=== PATIENT | female | born 2000 | race Asian ===

== ENCOUNTER 2022-04-23 05:28 | Emergency (ER) | payer BC, OTHER ==
[2022-04-23] MEDS ORDERED: Ketorolac Tromethamine 30 MG/ML VIAL ONE (06:07)
[2022-04-23] MEDS ORDERED: Dexamethasone 10 MG/ML VIAL ONE (06:07)
[2022-04-23 06:49] LABS: BHCG - Serum Negative (NEGATIVE); Pregs Control Background? CLEAR/WHITE (CLR/WHITE); Pregs Control Bar Appear? YES (CONTROL BAR)
[2022-04-23 06:55] LABS: Anion Gap 14 mmol/L (10-20); BUN (Urea Nitrogen) 9 mg/dL (7.0-18.7); Calc. Creatinine Clearance 0 mL/min (70-130); Calcium 9.1 mg/dL (7.8-10.44); Carbon Dioxide 19 mmol/L (22-29); Chloride 109 mmol/L (98-107); Estimated GFR 112; Glucose 89 mg/dL (70-105); Magnesium 1.9 mg/dL (1.6-2.6); Potassium 3.7 mmol/L (3.5-5.1); Sodium 138 mmol/L (136-145)
[2022-04-23 07:01] LABS: #Eosinphils 0.1 10x3/uL (0.0-0.5); #Monocytes 0.8 10x3/uL (0.0-1.1); #Neutrophils 3.7 10x3/uL (1.5-8.4); %Basophils 0.2 % (0.0-2.0); %Eosinophils 2.1 % (0.0-6.0); %Lymphocytes 12.8 % (18.0-47.0); %Monocytes 14.5 % (0.0-10.0); %Neutrophils 70.2 % (40.0-75.0); Hemoglobin 13.8 g/dL (12.0-15.5); Mean Corpuscular HGB CONC 35.2 g/dL (32.0-36.0); Mean Corpuscular Hemoglobin 31.5 pg (27.0-33.0); Mean Corpuscular Volume 89.5 fl (81.6-98.3); Mean Platelet Volume 9.7 fl (7.4-10.4); Platelet Count 317 10x3/uL (150-450); RBC Distribution Width 12.9 % (11.5-14.5); Red Blood Cell (RBC) Count 4.38 10x6/uL (3.90-5.03); White Blood Cell (WBC) Count 5.3 10x3/uL (3.5-10.5)
[2022-04-23 07:21] LABS: SARS-CoV-2 NAA Rapid Test DETECTED (NotDetected)
== END 2022-04-23 07:48 | disposition home or self-care (01) ==
LOC: CSHERS 05:28
DX: U07.1 COVID-19 (principal)
CPT/HCPCS: 80048; 83735; 84703; 85025; 87081; 87430; 96361; 96374; 96375; J1100; J1885

== ENCOUNTER 2022-10-17 18:11 | Inpatient (IN) | payer BC ==
[2022-10-17 19:01] LABS: #Eosinphils 0.1 10x3/uL (0.0-0.5); #Monocytes 0.5 10x3/uL (0.0-1.1); #Neutrophils 3.7 10x3/uL (1.5-8.4); %Basophils 0.3 % (0.0-2.0); %Eosinophils 1.7 % (0.0-6.0); %Lymphocytes 40.3 % (18.0-47.0); %Monocytes 6.4 % (0.0-10.0); Hematocrit 41.4 % (34.9-44.5); Hemoglobin 14.4 g/dL (12.0-15.5); Mean Corpuscular HGB CONC 34.8 g/dL (32.0-36.0); Mean Corpuscular Hemoglobin 31.1 pg (27.0-33.0); Mean Corpuscular Volume 89.4 fl (81.6-98.3); Mean Platelet Volume 9.3 fl (7.4-10.4); Platelet Count 418 10x3/uL (150-450); RBC Distribution Width 12.3 % (11.5-14.5); Red Blood Cell (RBC) Count 4.63 10x6/uL (3.90-5.03); White Blood Cell (WBC) Count 7.2 10x3/uL (3.5-10.5)
[2022-10-17 19:05] LABS: Pregs Control Background? CLEAR/WHITE (CLR/WHITE); Pregs Control Bar Appear? YES (CONTROL BAR)
[2022-10-17 19:10] LABS: BHCG - Serum Negative (NEGATIVE)
[2022-10-17 19:16] LABS: ALT (SGPT) 21 U/L (8-55); AST (SGOT) 18 U/L (5-34); Albumin 4.4 g/dL (3.5-5.0); Alkaline Phosphatase 56 U/L (40-110); Anion Gap 13 mmol/L (10-20); BUN (Urea Nitrogen) 7 mg/dL (7.0-18.7); Bilirubin, Total 1.4 mg/dL (0.2-1.2); CK (CPK) 65 U/L (29-168); Calc. Creatinine Clearance 0 mL/min (70-130); Calcium 9.4 mg/dL (7.8-10.44); Carbon Dioxide 27 mmol/L (22-29); Chloride 103 mmol/L (98-107); Estimated GFR 100; Glucose 119 mg/dL (70-105); Potassium 3.5 mmol/L (3.5-5.1); Protein, Total 8.4 g/dL (6.0-8.3); Sodium 139 mmol/L (136-145)
[2022-10-17] MEDS ORDERED: Ketorolac Tromethamine 30 MG/ML VIAL ONE (19:38)
[2022-10-17] MEDS ORDERED: Magnesium 2 GM/50 ML BAG (IN WATER) ONE (19:39)
[2022-10-17 20:20] LABS: SARS-CoV-2 NAA Rapid Test Not Detected (NotDetected)
[2022-10-17] MEDS ORDERED: Senokot S 8.6-50 MG TAB PO PRN (21:28)
[2022-10-17] MEDS ORDERED: Ondansetron PF 4 MG/2 ML Vial IVP PRN (21:28)
[2022-10-17] MEDS ORDERED: Calcium Carbonate 500 MG ChewTAB PO PRN (21:28)
[2022-10-17] MEDS ORDERED: methylPREDNISolone Sod Succ/PF 125 MG/2 ML VIAL IVP SCH (21:45)
[2022-10-17] MEDS ORDERED: Potassium Chloride 20 MEQ TAB PO SCH (23:30)
[2022-10-17] MEDS ORDERED: Potassium Chloride 20 MEQ TAB ONE (23:42)
[2022-10-17] MEDS ORDERED: methylPREDNISolone Sod Succ 1,000 MG in Sodium Chloride 0.9% 250 ML 250 ML IVPB SCH (23:59)
[2022-10-18] MEDS: Lactated Ringer's 1,000 ML IV SCH ×2 (00:01→20:32)
[2022-10-18 01:20] VITALS: BMI 29.5
[2022-10-18 04:02] LABS: ALT (SGPT) 18 U/L (8-55); AST (SGOT) 16 U/L (5-34); Albumin 3.8 g/dL (3.5-5.0); Alkaline Phosphatase 52 U/L (40-110); Anion Gap 14 mmol/L (10-20); BUN (Urea Nitrogen) 9 mg/dL (7.0-18.7); Calc. Creatinine Clearance 132 mL/min (70-130); Calcium 8.9 mg/dL (7.8-10.44); Carbon Dioxide 21 mmol/L (22-29); Chloride 110 mmol/L (98-107); Estimated GFR 103; Globulin 3.6 g/dL (2.4-3.5); Glucose 128 mg/dL (70-105); Magnesium 2.4 mg/dL (1.6-2.6); Potassium 4.1 mmol/L (3.5-5.1); Protein, Total 7.4 g/dL (6.0-8.3); Sodium 141 mmol/L (136-145)
[2022-10-18 04:18] LABS: Thyroid Stimulating Hormone 1.8703 uIU/mL (0.35-4.94)
[2022-10-18 09:03] LABS: Bilirubin Neg (Negative); Blood, Urine Negative (Negative); Clarity Clear (Clear); Glucose, Urine (Dipstick) Normal (Negative); Ketone, Urine Negative (Negative); Leukocyte Negative (Negative); Nitrite Negative (Negative); Protein, Urine (Dipstick) Negative (Neg-Trace); Urobilinogen Normal mg/dL (Less than 2)
[2022-10-18 09:11] LABS: Bacteria/HPF 1+ HPF (None Seen); RBC/HPF 0-3 HPF (0-3); WBC/HPF 0-3 HPF (0-3)
[2022-10-18] MEDS ORDERED: Magnevist 469MG/ML 20 ML VIAL ONE ×2 (09:26)
[2022-10-18] MEDS ORDERED: HumaLOG 300 UNITS/3 ML VIAL SC PRN ×2 (10:33)
[2022-10-18] MEDS ORDERED: Sodium Bicarbonate 2.5 MEQ/5 ML VIAL ONE (11:40)
[2022-10-18] MEDS ORDERED: Lidocaine 1% PF 5 ML VIAL ONE (11:40)
[2022-10-18] MEDS ORDERED: methylPREDNISolone Sod Succ 1,000 MG in Sodium Chloride 0.9% 100 ML IVPB SCH (20:00)
[2022-10-19] MEDS: Acetaminophen 325 MG TAB PO PRN ×3 (09:20→21:32)
[2022-10-19] MEDS ORDERED: Lidocaine 1% PF 5 ML VIAL ONE (10:36)
[2022-10-19] MEDS ORDERED: Sodium Bicarbonate 2.5 MEQ/5 ML VIAL ONE (10:36)
[2022-10-19 12:17] LABS: CSF, Glucose 92 mg/dl (40-70); CSF, Protein 28 mg/dL (15-40)
[2022-10-19 12:28] LABS: CSF Source CSF; Clarity Clear (Clear); Tube # 2
[2022-10-19 12:29] LABS: CSF RBC Count - Manual 1 /cu.mm (None Seen); CSF WBC/NonHematics Count-Man 2 /cu.mm (0-5)
[2022-10-19] MEDS ORDERED: methylPREDNISolone Sod Succ 1,000 MG in Sodium Chloride 0.9% 100 ML IVPB SCH (16:00)
[2022-10-20 13:07] VITALS: BP 121/69; TEMP 98
== END 2022-10-20 15:27 | disposition home or self-care (01) | DRG 60 ==
LOC: CSHERS 18:11 → CSHERHOLD 21:28 → OBSVTOIN 10-18 13:29 → CSHTELE 10-18 14:16
PROVIDERS: ADMIT Student in an Organized Health Care Education/Training Program; ATTEND Family Medicine
PROC: 009U3ZX Drainage of Spinal Canal, Percutaneous Approach, Diagnostic (ICD-10-PCS; principal; 2022-10-19)
PROC: B01B1ZZ Fluoroscopy of Spinal Cord using Low Osmolar Contrast (ICD-10-PCS; 2022-10-19)
DX: G35 Multiple sclerosis (principal); E86.0 Dehydration; J45.909 Unspecified asthma, uncomplicated; Z20.822 Contact with and (suspected) exposure to COVID-19
CPT/HCPCS: 36415; 36416; 62270; 70450; 70553; 72156; 80053; 81001; 82040; 82042; 82550; 82607; 82784; 82945; 83735; 83916; 84157; 84443; 84703; 85025; 87070; 87205; 89051; 93005; 93010; 96365; 96375; A9579; G0378; J1650; J1885; J2930; J3475; J3490; J7050; J7120; U0002

== ENCOUNTER 2022-10-23 16:22 | Inpatient (IN) | payer BC ==
[2022-10-23] MEDS ORDERED: cefTRIAXone (ROCEPHIN) 2 GM VIAL ONE (17:10)
[2022-10-23] MEDS ORDERED: Cefepime 2 GM VIAL ONE (17:12)
[2022-10-23] MEDS ORDERED: Vancomycin 1 GM VIAL ONE (17:22)
[2022-10-23 17:26] LABS: #Eosinphils 0.3 10x3/uL (0.0-0.5); #Monocytes 0.6 10x3/uL (0.0-1.1); #Neutrophils 6.8 10x3/uL (1.5-8.4); %Basophils 0.2 % (0.0-2.0); %Eosinophils 2.5 % (0.0-6.0); %Lymphocytes 31.5 % (18.0-47.0); %Monocytes 5.6 % (0.0-10.0); %Neutrophils 59.9 % (40.0-75.0); Hematocrit 42.9 % (34.9-44.5); Hemoglobin 14.7 g/dL (12.0-15.5); Mean Corpuscular HGB CONC 34.3 g/dL (32.0-36.0); Mean Corpuscular Volume 90.5 fl (81.6-98.3); Mean Platelet Volume 9.7 fl (7.4-10.4); Platelet Count 415 10x3/uL (150-450); RBC Distribution Width 12.2 % (11.5-14.5); Red Blood Cell (RBC) Count 4.74 10x6/uL (3.90-5.03); White Blood Cell (WBC) Count 11.4 10x3/uL (3.5-10.5)
[2022-10-23 17:43] LABS: BHCG - Serum Negative (NEGATIVE); Pregs Control Background? CLEAR/WHITE (CLR/WHITE); Pregs Control Bar Appear? YES (CONTROL BAR)
[2022-10-23 17:44] LABS: ALT (SGPT) 29 U/L (8-55); AST (SGOT) 16 U/L (5-34); Albumin 3.9 g/dL (3.5-5.0); Alkaline Phosphatase 50 U/L (40-110); Anion Gap 12 mmol/L (10-20); BUN (Urea Nitrogen) 13 mg/dL (7.0-18.7); Calc. Creatinine Clearance 0 mL/min (70-130); Calcium 8.6 mg/dL (7.8-10.44); Carbon Dioxide 25 mmol/L (22-29); Chloride 106 mmol/L (98-107); Estimated GFR 126; Globulin 3.3 g/dL (2.4-3.5); Glucose 87 mg/dL (70-105); Potassium 3.6 mmol/L (3.5-5.1); Protein, Total 7.2 g/dL (6.0-8.3); Sodium 139 mmol/L (136-145)
[2022-10-23] MEDS ORDERED: Ondansetron PF 4 MG/2 ML Vial IVP PRN (18:05)
[2022-10-23] MEDS ORDERED: Ondansetron ODT 4 MG TAB PO PRN (18:05)
[2022-10-23] MEDS ORDERED: Acetaminophen 325 MG TAB PO PRN ×2 (18:05→23:27)
[2022-10-23] MEDS: Ampicillin 2 GM in Sodium Chloride 0.9% 100 ML IVPB SCH (22:18)
[2022-10-23] MEDS: cefTRIAXone\\ROCEPHIN 2 GM in Sodium Chloride 0.9% 100 ML IVPB SCH (23:11)
[2022-10-23] MEDS ORDERED: Acetaminophen 500 MG TAB PO PRN (23:30)
[2022-10-24 01:53] VITALS: BMI 26.4
[2022-10-24] MEDS: Ampicillin 2 GM in Sodium Chloride 0.9% 100 ML IVPB SCH ×3 (01:54→08:50)
[2022-10-24] MEDS: Vancomycin HCl 1 GM in Sodium Chloride 0.9% 250 ML 250 ML IVPB SCH ×2 (04:22→12:23)
[2022-10-24 05:54] LABS: Anion Gap 14 mmol/L (10-20); BUN (Urea Nitrogen) 10 mg/dL (7.0-18.7); Calc. Creatinine Clearance 169 mL/min (70-130); Calcium 8.3 mg/dL (7.8-10.44); Carbon Dioxide 20 mmol/L (22-29); Chloride 110 mmol/L (98-107); Estimated GFR 128; Glucose 86 mg/dL (70-105); Potassium 3.6 mmol/L (3.5-5.1); Sodium 140 mmol/L (136-145)
[2022-10-24] MEDS ORDERED: SODIUM CHLORIDE IVPB SCH (06:00)
[2022-10-24] MEDS ORDERED: ACYCLOVIR SODIUM IVPB SCH (06:00)
[2022-10-24] MEDS ORDERED: ADMIXTURE FEE IVPB SCH (06:00)
[2022-10-24 06:02] LABS: #Eosinphils 0.4 10x3/uL (0.0-0.5); #Monocytes 0.7 10x3/uL (0.0-1.1); #Neutrophils 4.6 10x3/uL (1.5-8.4); %Basophils 0.1 % (0.0-2.0); %Eosinophils 3.3 % (0.0-6.0); %Lymphocytes 46.8 % (18.0-47.0); %Monocytes 6.1 % (0.0-10.0); %Neutrophils 43.2 % (40.0-75.0); Hematocrit 40.6 % (34.9-44.5); Hemoglobin 13.7 g/dL (12.0-15.5); Mean Corpuscular HGB CONC 33.7 g/dL (32.0-36.0); Mean Corpuscular Hemoglobin 30.5 pg (27.0-33.0); Mean Corpuscular Volume 90.4 fl (81.6-98.3); Mean Platelet Volume 9.9 fl (7.4-10.4); Platelet Count 402 10x3/uL (150-450); RBC Distribution Width 12.3 % (11.5-14.5); Red Blood Cell (RBC) Count 4.49 10x6/uL (3.90-5.03); White Blood Cell (WBC) Count 10.7 10x3/uL (3.5-10.5)
[2022-10-24] MEDS ORDERED: Vancomycin 1 GM in Premix Bag 1 BAG IVPB SCH (09:00)
[2022-10-24] MEDS: cefTRIAXone\\ROCEPHIN 2 GM in Sodium Chloride 0.9% 100 ML IVPB SCH (12:23)
[2022-10-24 16:50] VITALS: BP 114/69; TEMP 98.1
== END 2022-10-24 16:31 | disposition home or self-care (01) | DRG 60 ==
LOC: SUATTDRO 16:22 → CSHERS 16:22 → CSHTELE 18:05
PROVIDERS: ADMIT Family Medicine; ATTEND Family Medicine
DX: G35 Multiple sclerosis (principal); J45.909 Unspecified asthma, uncomplicated; Z83.3 Family history of diabetes mellitus; Z82.49 Family history of ischemic heart disease and other diseases of the circulatory system
CPT/HCPCS: 36415; 80048; 80053; 83605; 84703; 85025; 86140; 87040; J0133; J0290; J0692; J0696; J1650; J3370; J3490; J7050

== ENCOUNTER 2022-10-25 21:20 | Emergency (ER) | payer BC ==
[2022-10-25] MEDS ORDERED: diphenhydrAMINE 50 MG/ML VIAL ONE (22:41)
[2022-10-25] MEDS ORDERED: Ketorolac Tromethamine 30 MG/ML VIAL ONE (22:42)
[2022-10-25] MEDS ORDERED: Prochlorperazine 10 MG/2 ML VIAL ONE (23:01)
== END 2022-10-26 00:34 | disposition home or self-care (01) ==
LOC: CSHERS 21:20
DX: G97.1 Other reaction to spinal and lumbar puncture (principal); R51.9 Headache, unspecified
CPT/HCPCS: 96365; 96375; J0780; J1200; J1885

== ENCOUNTER 2022-11-13 20:37 | Emergency (ER) | payer BC ==
[2022-11-13] MEDS ORDERED: diphenhydrAMINE 50 MG/ML VIAL ONE (21:59)
[2022-11-13] MEDS ORDERED: methylPREDNISolone Sod Succ/PF 125 MG/2 ML VIAL ONE (21:59)
[2022-11-13] MEDS ORDERED: Metoclopramide HCl 10 MG/2 ML VIAL ONE (22:00)
[2022-11-13] MEDS ORDERED: Magnesium 2 GM/50 ML BAG (IN WATER) ONE (22:00)
[2022-11-13] MEDS ORDERED: Ketorolac Tromethamine 30 MG/ML VIAL ONE (22:00)
[2022-11-13 22:41] LABS: #Eosinphils 0.2 10x3/uL (0.0-0.5); #Monocytes 0.8 10x3/uL (0.0-1.1); #Neutrophils 3.2 10x3/uL (1.5-8.4); %Basophils 0.4 % (0.0-2.0); %Lymphocytes 45.5 % (18.0-47.0); %Monocytes 10.1 % (0.0-10.0); %Neutrophils 40.9 % (40.0-75.0); Hematocrit 41.7 % (34.9-44.5); Hemoglobin 14.3 g/dL (12.0-15.5); Mean Corpuscular HGB CONC 34.3 g/dL (32.0-36.0); Mean Corpuscular Hemoglobin 30.8 pg (27.0-33.0); Mean Corpuscular Volume 89.7 fl (81.6-98.3); Mean Platelet Volume 9.3 fl (7.4-10.4); Platelet Count 477 10x3/uL (150-450); RBC Distribution Width 12.9 % (11.5-14.5); Red Blood Cell (RBC) Count 4.65 10x6/uL (3.90-5.03); White Blood Cell (WBC) Count 7.7 10x3/uL (3.5-10.5)
[2022-11-13 22:58] LABS: ALT (SGPT) 25 U/L (8-55); AST (SGOT) 17 U/L (5-34); Albumin 4.3 g/dL (3.5-5.0); Alkaline Phosphatase 56 U/L (40-110); Anion Gap 14 mmol/L (10-20); BUN (Urea Nitrogen) 8 mg/dL (7.0-18.7); Calc. Creatinine Clearance 0 mL/min (70-130); Calcium 9.5 mg/dL (7.8-10.44); Carbon Dioxide 23 mmol/L (22-29); Chloride 106 mmol/L (98-107); Estimated GFR 111; Globulin 3.5 g/dL (2.4-3.5); Glucose 75 mg/dL (70-105); Potassium 3.4 mmol/L (3.5-5.1); Protein, Total 7.8 g/dL (6.0-8.3); Sodium 140 mmol/L (136-145)
== END 2022-11-14 00:21 | disposition home or self-care (01) ==
LOC: CSHERS 20:37
DX: G43.909 Migraine, unspecified, not intractable, without status migrainosus (principal); G35 Multiple sclerosis
CPT/HCPCS: 80053; 85025; 96365; 96375; J1200; J1885; J2765; J2930; J3475